=== PATIENT | female | born 1955 | race Caucasian/White ===

== ENCOUNTER 2017-10-16 15:40 | Observation (INO) | payer BC, OTHER ==
[~2017-10-16] VITALS: Ht 157.5 cm; Wt 64.6 kg
[~2017-10-16 15:40] MED LIST: Citalopram HBr20 MG PO; FOLI1 PO; FURO20 PO; Hair, Skin & N1 EACH PO; IBUPROFEN200 MG PO; K-Dur20 MEQ PO; KLOR CON PO; LACT10SY PO; LOSARTAN POTASS50 MG PO; MAGOXI400 PO; MULVITMIND PO; Multivitamins1 EAC4 PO; NEBI5 PO; ONDA4ODT PO; SPIR25 PO; SPIR50 PO; Super B Comple1 EAC2 PO; Super B-50 Com1 EAC1 PO; THIA100 PO
[2017-10-16 16:33] LABS: BASOPHILS ABSOLUTE AUTO 0.04 K/mm3 (0.00-0.23); BASOPHILS PERCENT AUTO 0 % (0-2); EOSINOPHILS ABSOLUTE AUTO 0.12 K/mm3 (0.00-0.68); EOSINOPHILS PERCENT AUTO 1 % (0-6); Hematocrit 28.5 % (33.0-51.0); Hemoglobin 9.6 g/dL (11.5-16.0); IMMATURE GRAN ABSOLUTE AUTO 0.06 K/mm3 (0.00-0.10); IMMATURE GRAN PERCENT AUTO 1 % (0-1); LYMPHOCYTES ABSOLUTE AUTO 2.02 K/mm3 (0.84-5.20); LYMPHOCYTES PERCENT AUTO 21 % (21-46); MONOCYTES ABSOLUTE AUTO 0.82 K/mm3 (0.16-1.47); MONOCYTES PERCENT AUTO 9 % (4-13); Mean Corpuscular HGB 36.8 pg (26.0-34.0); Mean Corpuscular HGB Conc 33.7 g/dL (31.5-36.5); NEUTROPHILS ABSOLUTE AUTO 6.47 K/mm3 (1.96-9.15); NEUTROPHILS PERCENT AUTO 68 % (41-73); Platelet Count 151 K/mm3 (150-400); RDW Coefficient Variation 14.6 % (11.7-14.2); Red Blood Cell Count 2.61 M/mm3 (3.80-5.20); White Blood Cell Count 9.53 K/mm3 (4.00-11.30)
[2017-10-16] MEDS ORDERED: POTCHL20ER PO (16:33)
[2017-10-16 16:38] LABS: Mean Corpuscular Volume 109 fL (80-100)
[2017-10-16 16:48] LABS: Alanine Aminotransfer (ALT/SGP 47 U/L (12-78); Albumin, Blood 2.3 g/dL (3.4-5.0); Albumin/Globulin Ratio 0.5 (0.8-1.8); Alk Phos 123 U/L (50-136); Anion Gap 13 mmol/L (6-16); Aspartate Aminotrans (AST/SGOT 90 U/L (12-37); Blood Urea Nitrogen 12 mg/dL (8-24); Bun/Creatinine Ratio 17.5 (12.0-20.0); CO2, Blood 15 mmol/L (21-32); Calcium, Blood 9.1 mg/dL (8.5-10.1); Chloride, Blood 109 mmol/L (98-108); Creatinine, Blood 0.68 mg/dL (0.40-1.00); Globulin, Blood 4.5 g/dL (2.2-4.0); Glomerular Filtration Rate >60 (60-); Glucose, Blood 103 mg/dL (70-99); Potassium, Blood 4.2 mmol/L (3.5-5.5); Sodium, Blood 137 mmol/L (136-145); Total Protein, Blood 6.8 g/dL (6.4-8.2); Troponin I <0.015 ng/mL (0.000-0.040)
[2017-10-16 17:42] LABS: International Normalized Ratio 1.23; Prothrombin Time Results 12.5 Sec (9.7-11.5)
[2017-10-17 04:51] LABS: BASOPHILS ABSOLUTE AUTO 0.04 K/mm3 (0.00-0.23); BASOPHILS PERCENT AUTO 1 % (0-2); EOSINOPHILS ABSOLUTE AUTO 0.15 K/mm3 (0.00-0.68); EOSINOPHILS PERCENT AUTO 2 % (0-6); Hematocrit 25.9 % (33.0-51.0); Hemoglobin 8.6 g/dL (11.5-16.0); IMMATURE GRAN ABSOLUTE AUTO 0.05 K/mm3 (0.00-0.10); IMMATURE GRAN PERCENT AUTO 1 % (0-1); LYMPHOCYTES ABSOLUTE AUTO 1.77 K/mm3 (0.84-5.20); LYMPHOCYTES PERCENT AUTO 22 % (21-46); MONOCYTES ABSOLUTE AUTO 0.73 K/mm3 (0.16-1.47); MONOCYTES PERCENT AUTO 9 % (4-13); Mean Corpuscular HGB 36.6 pg (26.0-34.0); Mean Corpuscular HGB Conc 33.2 g/dL (31.5-36.5); Mean Corpuscular Volume 110 fL (80-100); Mean Platelet Volume 9.1 fL (9.1-12.4); NEUTROPHILS ABSOLUTE AUTO 5.38 K/mm3 (1.96-9.15); NEUTROPHILS PERCENT AUTO 66 % (41-73); Platelet Count 127 K/mm3 (150-400); RDW Coefficient Variation 14.4 % (11.7-14.2); Red Blood Cell Count 2.35 M/mm3 (3.80-5.20); White Blood Cell Count 8.12 K/mm3 (4.00-11.30)
[2017-10-17 05:02] LABS: International Normalized Ratio 1.3; Prothrombin Time Results 13.2 Sec (9.7-11.5)
[2017-10-17 05:15] LABS: Anion Gap 10 mmol/L (6-16); Blood Urea Nitrogen 10 mg/dL (8-24); Bun/Creatinine Ratio 14.1 (12.0-20.0); CO2, Blood 18 mmol/L (21-32); Calcium, Blood 8.8 mg/dL (8.5-10.1); Chloride, Blood 110 mmol/L (98-108); Creatinine, Blood 0.71 mg/dL (0.40-1.00); Glomerular Filtration Rate >60 (60-); Glucose, Blood 88 mg/dL (70-99); Potassium, Blood 4.1 mmol/L (3.5-5.5); Sodium, Blood 138 mmol/L (136-145)
[2017-10-17 13:03] LABS: Automated BF WBC Count 0.154 K/mm3 (0-999); Body Fluid WBC Count 154 /mm3 (0-999)
[2017-10-17 13:27] LABS: RBC Count, Body Fluid 78 /mm3 (0-0)
[2017-10-17 13:53] LABS: Appearance, Body Fluid Clear (Clear); Color, Body Fluid Yellow (None-Yellow)
[2017-10-17 14:15] LABS: Total Cell Count, Body Fluid 100
[2017-10-18] MEDS ORDERED: SERT25 PO (13:29)
== END 2017-10-18 13:51 | disposition home or self-care (01) ==
LOC: ER 15:40 → MEDS 15:41 → ENPENDDIS 10-18 09:30 → MEDS 10-18 13:51
PROVIDERS: Emergency Medicine; Family Medicine
DX: J90 Pleural effusion, not elsewhere classified (principal); K72.00 Acute and subacute hepatic failure without coma; K70.31 Alcoholic cirrhosis of liver with ascites; D69.6 Thrombocytopenia, unspecified; F32.9 Major depressive disorder, single episode, unspecified; I10 Essential (primary) hypertension; F10.10 Alcohol abuse, uncomplicated; D63.8 Anemia in other chronic diseases classified elsewhere; E87.6 Hypokalemia; Z88.2 Allergy status to sulfonamides; Z79.899 Other long term (current) drug therapy
CPT/HCPCS: 32555; 36415; 71045; 71046; 80048; 80053; 83880; 84484; 85025; 85610; 85730; 89051; 93005; 93010; 96374; 99285; G0378; J3010

== ENCOUNTER 2017-10-19 15:09 | Day surgery (SDC) | payer BC, OTHER ==
[~2017-10-19 15:09] MED LIST changes: +POTCHL20ER PO; +SERT25 PO
== END 2017-10-19 22:47 ==
LOC: US 15:09
PROC: 0W993ZZ Drainage of Right Pleural Cavity, Percutaneous Approach (ICD-10-PCS; principal; 2017-10-19)
DX: J90 Pleural effusion, not elsewhere classified (principal)
CPT/HCPCS: 32555; 71045

== ENCOUNTER 2017-11-08 14:52 | Day surgery (SDC) | payer BC, OTHER | END 2017-11-08 23:13 | disposition home or self-care (01) | LOC: US 14:52 | DX: K70.31 Alcoholic cirrhosis of liver with ascites (principal) | CPT/HCPCS: 76705 ==

== ENCOUNTER 2017-12-06 13:22 | Inpatient (IN) | payer BC, OTHER ==
[~2017-12-06] VITALS: Ht 157.5 cm; Wt 52.2 kg
[2017-12-06 14:41] LABS: BASOPHILS ABSOLUTE AUTO 0.03 K/mm3 (0.00-0.23); BASOPHILS PERCENT AUTO 1 % (0-2); EOSINOPHILS ABSOLUTE AUTO 0.14 K/mm3 (0.00-0.68); EOSINOPHILS PERCENT AUTO 3 % (0-6); Hematocrit 30.4 % (33.0-51.0); Hemoglobin 10.6 g/dL (11.5-16.0); IMMATURE GRAN ABSOLUTE AUTO 0.01 K/mm3 (0.00-0.10); IMMATURE GRAN PERCENT AUTO 0 % (0-1); LYMPHOCYTES ABSOLUTE AUTO 1.71 K/mm3 (0.84-5.20); LYMPHOCYTES PERCENT AUTO 33 % (21-46); MONOCYTES ABSOLUTE AUTO 0.52 K/mm3 (0.16-1.47); MONOCYTES PERCENT AUTO 10 % (4-13); Mean Corpuscular HGB 31.6 pg (26.0-34.0); Mean Corpuscular HGB Conc 34.9 g/dL (31.5-36.5); Mean Corpuscular Volume 91 fL (80-100); Mean Platelet Volume 11.9 fL (9.1-12.4); NEUTROPHILS ABSOLUTE AUTO 2.75 K/mm3 (1.96-9.15); NEUTROPHILS PERCENT AUTO 53 % (41-73); Platelet Count 166 K/mm3 (150-400); RDW Standard Deviation 56.1 fL (35.1-46.3); Red Blood Cell Count 3.35 M/mm3 (3.80-5.20); White Blood Cell Count 5.16 K/mm3 (4.00-11.30)
[2017-12-06 15:00] LABS: Source, Urine Clean Catch
[2017-12-06 15:03] LABS: Alanine Aminotransfer (ALT/SGP 37 U/L (12-78); Albumin, Blood 2.5 g/dL (3.4-5.0); Albumin/Globulin Ratio 0.7 (0.8-1.8); Alk Phos 74 U/L (50-136); Anion Gap 11 mmol/L (6-16); Aspartate Aminotrans (AST/SGOT 36 U/L (12-37); Bilirubin, Total 3.1 mg/dL (0.1-1.0); Blood Urea Nitrogen 22 mg/dL (8-24); Bun/Creatinine Ratio 26.9 (12.0-20.0); CO2, Blood 17 mmol/L (21-32); Calcium, Blood 8.6 mg/dL (8.5-10.1); Chloride, Blood 113 mmol/L (98-108); Creatinine, Blood 0.82 mg/dL (0.40-1.00); Ethanol (Alcohol), Blood, Med <3 mg/dL; Globulin, Blood 3.7 g/dL (2.2-4.0); Glomerular Filtration Rate >60 (60-); Glucose, Blood 118 mg/dL (70-99); Magnesium, Blood 1.7 mg/dL (1.6-2.4); Potassium, Blood 3.2 mmol/L (3.5-5.5); Sodium, Blood 141 mmol/L (136-145); Total Protein, Blood 6.2 g/dL (6.4-8.2)
[2017-12-06 15:06] LABS: Blood, Urine Neg (Neg); Glucose Qualitative, Urine Neg (Neg); Ketones, Urine 1+ (Neg); Leukocyte Esterase, Urine 1+ (Neg); Nitrite, Urine Neg (Neg); Protein, Urine 1+ (Neg); Specific Gravity, Urine 1.015 (1.003-1.022); Urobilinogen, Urine 3+ (Normal)
[2017-12-06 15:12] LABS: Appearance, Urine Clear (Clear); Bilirubin, Urine 2+ (Neg); Color, Urine Yellow (P-Yellow)
[2017-12-06 15:14] LABS: Bacteria Few /hpf; Red Blood Cells, Urine 0-2 /hpf (0-2); Squamous Epithelial Cells Few /hpf (Few)
[2017-12-06 15:18] LABS: U Amphetamine Screen Not Detected; U Barbituate Screen Not Detected; U Benzodiazapine Screen DETECTED; U Buprenorphine Screen Not Detected; U Cannabinoids Screen Not Detected; U Cocaine Screen Not Detected; U Methadone Screen Not Detected; U Methamphetamine Screen Not Detected; U Opiates Screen Not Detected; U Oxycodone Screen Not Detected; U Phencyclidine Screen Not Detected; U Propoxyphene Screen Not Detected
[2017-12-06] MEDS ORDERED: RIFA550T2 PO (16:53)
[2017-12-06] MEDS ORDERED: FURO40 PO (16:54)
[2017-12-07 05:19] LABS: Anion Gap 12 mmol/L (6-16); Blood Urea Nitrogen 20 mg/dL (8-24); Bun/Creatinine Ratio 24.9 (12.0-20.0); CO2, Blood 19 mmol/L (21-32); Calcium, Blood 8.4 mg/dL (8.5-10.1); Chloride, Blood 115 mmol/L (98-108); Glomerular Filtration Rate >60 (60-); Glucose, Blood 86 mg/dL (70-99); Magnesium, Blood 1.8 mg/dL (1.6-2.4); Potassium, Blood 3.1 mmol/L (3.5-5.5); Sodium, Blood 146 mmol/L (136-145)
[2017-12-08 05:39] LABS: Anion Gap 10 mmol/L (6-16); Blood Urea Nitrogen 15 mg/dL (8-24); Bun/Creatinine Ratio 19.3 (12.0-20.0); CO2, Blood 18 mmol/L (21-32); Calcium, Blood 8.2 mg/dL (8.5-10.1); Chloride, Blood 115 mmol/L (98-108); Creatinine, Blood 0.78 mg/dL (0.40-1.00); Glomerular Filtration Rate >60 (60-); Glucose, Blood 81 mg/dL (70-99); Potassium, Blood 3.1 mmol/L (3.5-5.5); Sodium, Blood 143 mmol/L (136-145)
[2017-12-08] MEDS ORDERED: PANT40 PO (10:42)
== END 2017-12-08 11:21 | disposition home or self-care (01) | DRG 442 ==
LOC: ER 13:22 → MEDS 15:20 → ENPENDDIS 12-08 08:48 → MEDS 12-08 11:21
PROVIDERS: Emergency Medicine; Hospitalist
DX: K72.90 Hepatic failure, unspecified without coma (principal); J90 Pleural effusion, not elsewhere classified; K70.31 Alcoholic cirrhosis of liver with ascites; E87.6 Hypokalemia; D63.8 Anemia in other chronic diseases classified elsewhere; I10 Essential (primary) hypertension; F32.9 Major depressive disorder, single episode, unspecified
CPT/HCPCS: 36415; 36416; 71046; 80048; 80053; 81001; 82140; 83735; 85025; 87493; 93005; 93010; 99285-25; G0480; P9612

== ENCOUNTER → 2018-05-09 | Outpatient (CLI) | payer MEDICARE, BC, OTHER ==
[~2018-05-09] MED LIST changes: +FURO40 PO; +PANT40 PO; +RIFA550T2 PO
[2018-05-09 19:07] LABS: Bun/Creatinine Ratio 22.1 (12.0-20.0); Calcium, Blood 8.9 mg/dL (8.5-10.1); Potassium, Blood 3.4 mmol/L (3.5-5.5)
== END | disposition home or self-care (01) ==
LOC: LAB 17:54 → LAB SHORT 17:54
PROVIDERS: Hospitalist
DX: E87.6 Hypokalemia (principal)
CPT/HCPCS: 80048

== ENCOUNTER 2019-03-12 12:13 | Day surgery (SDC) | payer MEDICARE, BC, OTHER ==
[~2019-03-12] VITALS: Ht 157.5 cm; Wt 59.7 kg
[~2019-03-12 12:13] MED LIST changes: +Roxicodone5 MG PO; +VITAMIN B125000 MCG
== END 2019-03-12 14:17 | disposition home or self-care (01) ==
LOC: ORSCSDS 12:13
PROVIDERS: Internal Medicine Gastroenterology
PROC: 0DJ08ZZ Inspection of Upper Intestinal Tract, Via Natural or Artificial Opening Endoscopic (ICD-10-PCS; principal; 2019-03-12 13:15)
DX: K74.60 Unspecified cirrhosis of liver (principal); I85.00 Esophageal varices without bleeding; Z98.84 Bariatric surgery status; I10 Essential (primary) hypertension; F32.9 Major depressive disorder, single episode, unspecified; Z79.899 Other long term (current) drug therapy
CPT/HCPCS: J2250; J2704

== ENCOUNTER → 2019-03-20 | Outpatient (CLI) | payer MEDICARE, BC, OTHER ==
[2019-03-20 20:09] LABS: BASOPHILS ABSOLUTE AUTO 0.04 K/mm3 (0.00-0.23); BASOPHILS PERCENT AUTO 1 % (0-2); EOSINOPHILS PERCENT AUTO 3 % (0-6); Hematocrit 37.5 % (33.0-51.0); Hemoglobin 12.6 g/dL (11.5-16.0); IMMATURE GRAN PERCENT AUTO 0 % (0-1); LYMPHOCYTES ABSOLUTE AUTO 0.77 K/mm3 (0.84-5.20); LYMPHOCYTES PERCENT AUTO 23 % (21-46); MONOCYTES ABSOLUTE AUTO 0.44 K/mm3 (0.16-1.47); MONOCYTES PERCENT AUTO 13 % (4-13); Mean Corpuscular HGB 34.5 pg (26.0-34.0); Mean Corpuscular HGB Conc 33.6 g/dL (31.5-36.5); Mean Corpuscular Volume 103 fL (80-100); Mean Platelet Volume 11.9 fL (9.1-12.4); NEUTROPHILS ABSOLUTE AUTO 2.06 K/mm3 (1.96-9.15); NEUTROPHILS PERCENT AUTO 60 % (41-73); RDW Coefficient Variation 14.2 % (11.7-14.2); RDW Standard Deviation 54.4 fL (35.1-46.3); Red Blood Cell Count 3.65 M/mm3 (3.80-5.20); White Blood Cell Count 3.41 K/mm3 (4.00-11.30)
[2019-03-20 20:18] LABS: Platelet Count 34 K/mm3 (150-400)
[2019-03-20 20:34] LABS: Alanine Aminotransfer (ALT/SGP 61 U/L (12-78); Albumin, Blood 3.3 g/dL (3.4-5.0); Albumin/Globulin Ratio 0.9 (0.8-1.8); Alk Phos 151 U/L (50-136); Anion Gap 7 mmol/L (6-16); Aspartate Aminotrans (AST/SGOT 96 U/L (12-37); Bilirubin, Total 2.6 mg/dL (0.1-1.0); Blood Urea Nitrogen 8 mg/dL (8-24); Bun/Creatinine Ratio 12.5 (12.0-20.0); CO2, Blood 26 mmol/L (21-32); Calcium, Blood 8.6 mg/dL (8.5-10.1); Chloride, Blood 108 mmol/L (98-108); Creatinine, Blood 0.64 mg/dL (0.40-1.00); Globulin, Blood 3.6 g/dL (2.2-4.0); Glomerular Filtration Rate >60 (60-); Glucose, Blood 104 mg/dL (70-99); Potassium, Blood 3.9 mmol/L (3.5-5.5); Sodium, Blood 141 mmol/L (136-145); Total Protein, Blood 6.9 g/dL (6.4-8.2)
== END | disposition home or self-care (01) ==
LOC: LAB SHORT 17:39 → LAB 17:39
PROVIDERS: Hospitalist
DX: K70.9 Alcoholic liver disease, unspecified (principal); I10 Essential (primary) hypertension
CPT/HCPCS: 80053; 85025

== ENCOUNTER → 2019-05-22 | Outpatient (CLI) | payer MEDICARE, BC, OTHER ==
[2019-05-22 16:34] LABS: Percent Saturation 106.2 % (15.0-50.0)
[2019-05-22 16:37] LABS: Alpha Feto Protein, Tumor Mkr 9.6 ng/mL (0.0-8.0)
== END | disposition home or self-care (01) ==
LOC: LAB 10:50 → LAB SHORT 10:50
PROVIDERS: Internal Medicine Hematology & Oncology
DX: E53.8 Deficiency of other specified B group vitamins (principal); K70.31 Alcoholic cirrhosis of liver with ascites; D69.6 Thrombocytopenia, unspecified
CPT/HCPCS: 82105; 82607; 82728; 82746; 83540; 83550

== ENCOUNTER 2019-05-27 13:36 | Day surgery (SDC) | payer MEDICARE, BC, OTHER ==
[~2019-05-27] VITALS: Ht 157.5 cm; Wt 64.9 kg
[2019-05-27 14:25] LABS: Platelet Count 74 K/mm3 (150-400)
--- NOTE | 2019-05-27 15:57 | NUR ---
05/27/19 1557 Perta Tejada TRANEXAMIC ACID STARTED AT 1520 VIA PUMP. IV STARTED BY DR. MOREIRA.
--- NOTE | 2019-05-27 17:12 | NUR ---
05/27/19 1712 Nicole Marroquin [id number] DELAYED ENTRY V/O FROM DR RUCKER TO VOID REPEAT DOSE OF TRANEXAMIC ACID. PT INSTRUCTED TO TAKE PO DOSE OF POTASSIUM CHLORIDE AT HOME PRESCRIBED.
--- NOTE | 2019-05-27 17:19 | NUR ---
05/27/19 1719 Nicole Marroquin VSS, PT TOLERATING PO FLUIDS WELL IN SDU. AT CHAIRSIDE FOR DC INSTRUCTIONS. ICE AND ELEVATION IMPLEMENTED. PT AND VERBALIZED AWARENESS TO TAKE 1 PO DOSE OF POTASSIUM CHLORIDE AT HOME ORDERED BY DR RUCKER.
== END 2019-05-27 17:18 | disposition home or self-care (01) ==
LOC: ORSCSDS 13:36
PROVIDERS: Podiatrist Foot & Ankle Surgery
PROC: 0QSN04Z Reposition Right Metatarsal with Internal Fixation Device, Open Approach (ICD-10-PCS; principal; 2019-05-27 14:00)
PROC: 0SGM04Z Fusion of Right Metatarsal-Phalangeal Joint with Internal Fixation Device, Open Approach (ICD-10-PCS; principal; 2019-05-27 14:00)
DX: M20.11 Hallux valgus (acquired), right foot (principal); M20.41 Other hammer toe(s) (acquired), right foot; M79.671 Pain in right foot; I10 Essential (primary) hypertension; K74.60 Unspecified cirrhosis of liver; Z79.899 Other long term (current) drug therapy
CPT/HCPCS: 84132; 85049; C1713; C1769; J0171; J0690; J1100; J2250; J2405; J2704; J3010; J7120

== ENCOUNTER 2019-07-22 21:54 | Inpatient (IN) | payer MEDICARE, BC, OTHER ==
[~2019-07-22] VITALS: Ht 157.5 cm; Wt 62.5 kg
[2019-07-22 23:11] LABS: BASOPHILS ABSOLUTE AUTO 0.07 K/mm3 (0.00-0.23); BASOPHILS PERCENT AUTO 0 % (0-2); EOSINOPHILS ABSOLUTE AUTO 0.06 K/mm3 (0.00-0.68); EOSINOPHILS PERCENT AUTO 0 % (0-6); Hemoglobin 11.5 g/dL (11.5-16.0); IMMATURE GRAN ABSOLUTE AUTO 0.43 K/mm3 (0.00-0.10); IMMATURE GRAN PERCENT AUTO 2 % (0-1); LYMPHOCYTES ABSOLUTE AUTO 1.55 K/mm3 (0.84-5.20); LYMPHOCYTES PERCENT AUTO 8 % (21-46); MONOCYTES ABSOLUTE AUTO 1.51 K/mm3 (0.16-1.47); MONOCYTES PERCENT AUTO 8 % (4-13); Mean Corpuscular HGB 36.9 pg (26.0-34.0); Mean Corpuscular HGB Conc 33.8 g/dL (31.5-36.5); Mean Corpuscular Volume 109 fL (80-100); Mean Platelet Volume 9.9 fL (9.1-12.4); NEUTROPHILS ABSOLUTE AUTO 15.45 K/mm3 (1.96-9.15); NEUTROPHILS PERCENT AUTO 81 % (41-73); Platelet Count 131 K/mm3 (150-400); RDW Coefficient Variation 14.6 % (11.7-14.2); RDW Standard Deviation 59.2 fL (35.1-46.3); Red Blood Cell Count 3.12 M/mm3 (3.80-5.20); White Blood Cell Count 19.07 K/mm3 (4.00-11.30)
[2019-07-22 23:25] LABS: Albumin, Blood 1.9 g/dL (3.4-5.0); Albumin/Globulin Ratio 0.4 (0.8-1.8); Bilirubin, Total 14.4 mg/dL (0.1-1.0); Bun/Creatinine Ratio 23.3 (12.0-20.0); Calcium, Blood 8.3 mg/dL (8.5-10.1); Creatinine, Blood 1.5 mg/dL (0.40-1.00); Globulin, Blood 4.4 g/dL (2.2-4.0); Potassium, Blood 4.2 mmol/L (3.5-5.5); Total Protein, Blood 6.3 g/dL (6.4-8.2)
[2019-07-22 23:38] LABS: International Normalized Ratio 1.54; Prothrombin Time Results 16.1 Sec (9.7-11.5)
[2019-07-23 00:45] LABS: Source, Urine Clean Catch
[2019-07-23 00:47] LABS: Appearance, Urine Clear (Clear); Bilirubin, Urine 3+ (Neg); Blood, Urine Neg (Neg); Color, Urine Amber (P-Yellow); Glucose Qualitative, Urine Neg (Neg); Ketones, Urine 1+ (Neg); Leukocyte Esterase, Urine 1+ (Neg); Nitrite, Urine Neg (Neg); Protein, Urine 1+ (Neg); Specific Gravity, Urine 1.015 (1.003-1.022); Urobilinogen, Urine 4+ (Normal)
[2019-07-23 00:53] LABS: Amorphous Light (0-Heavy); Bacteria Mod /hpf; Granular Casts 0-2 /lpf (0); Hyaline Casts 50-100 /lpf (0-2); Mucus Light (0-Heavy); Red Blood Cells, Urine 0-2 /hpf (0-2); Squamous Epithelial Cells Few /hpf (Few)
--- NOTE | 2019-07-23 01:36 | NUR ---
0136-PATIENT BEING ADMITTED TO THE FLOOR FOR ACUTE HEPATIC ENCEPHALOPATHY. SHE ARRIVED VIA GURNEY, TRANSFERRED TO BED USING SLIDER SHEET. SHE IS ALERT BUT VERY WITHDRAWN, KEEPING HER EYES CLOSED. SHE IS ANSWERING QUESTIONS BUT NOT SURE HOW ACCURATE THEY ARE OR IF SHE WILL REMEMBER THEM. SHE WAS UNABLE TO STATE ORIENTATION OTHER THEN SELF. SHE APPEARS VERY TIRED AND FATIQUED. LUNG SOUNDS ARE CLEAR THROUGHOUT. HR REGULAR S1 S2 SOUNDS. SKIN IS VERY JAUDICE, INCLUDING EYES. ABDOMINAL GIRTH IS VERY ROUND AND FIRM, TENDER TO PALPITATION. STATES BM TODAY, NORMAL. DENIES SOB, CHEST PAIN, PALPITATIONS. ASCENCIO PATENT AND DRAINING. APPETITE DECREASED, STATES HAS NOT BEEN ABLE TO EAT. SKIN INTACT, NO SKIN BREAKDOWN NOTED. CALL LIGHT GIVEN, ADMISSION COMPLETED. WILL CONTINUE TO MONITOR.
[2019-07-23 04:34] LABS: BASOPHILS ABSOLUTE AUTO 0.03 K/mm3 (0.00-0.23); BASOPHILS PERCENT AUTO 0 % (0-2); EOSINOPHILS ABSOLUTE AUTO 0.09 K/mm3 (0.00-0.68); EOSINOPHILS PERCENT AUTO 1 % (0-6); Hemoglobin 10.2 g/dL (11.5-16.0); IMMATURE GRAN ABSOLUTE AUTO 0.34 K/mm3 (0.00-0.10); IMMATURE GRAN PERCENT AUTO 2 % (0-1); LYMPHOCYTES ABSOLUTE AUTO 2.08 K/mm3 (0.84-5.20); LYMPHOCYTES PERCENT AUTO 11 % (21-46); MONOCYTES ABSOLUTE AUTO 1.46 K/mm3 (0.16-1.47); MONOCYTES PERCENT AUTO 8 % (4-13); Mean Corpuscular HGB 36.4 pg (26.0-34.0); Mean Corpuscular HGB Conc 32.9 g/dL (31.5-36.5); Mean Corpuscular Volume 111 fL (80-100); Mean Platelet Volume 9.8 fL (9.1-12.4); NEUTROPHILS ABSOLUTE AUTO 14.68 K/mm3 (1.96-9.15); NEUTROPHILS PERCENT AUTO 79 % (41-73); Platelet Count 125 K/mm3 (150-400); RDW Coefficient Variation 14.6 % (11.7-14.2); RDW Standard Deviation 59.7 fL (35.1-46.3); White Blood Cell Count 18.68 K/mm3 (4.00-11.30)
[2019-07-23 04:52] LABS: Albumin, Blood 1.8 g/dL (3.4-5.0); Albumin/Globulin Ratio 0.4 (0.8-1.8); Bun/Creatinine Ratio 22.6 (12.0-20.0); Calcium, Blood 8.1 mg/dL (8.5-10.1); Creatinine, Blood 1.59 mg/dL (0.40-1.00); Potassium, Blood 3.6 mmol/L (3.5-5.5); Total Protein, Blood 5.8 g/dL (6.4-8.2)
--- NOTE | 2019-07-23 05:53 | NUR ---
SHIFT SUMMARY: ALFREDO WAS ADMITTED TO THE FLOOR LAST NIGHT FOR HEPATIC ENCEPHALOPATHY. AOX1, VERY WITHDRAWN AND FATIQUED. UNABLE TO HOLD EYES OPEN. ABLE TO FOLLOW DIRECTIONS AND ANSWER QUESTIONS, BUT FORGETFUL. SHE IS ILL APPEARING, JAUDICE WITH DISTENDED ABDOMIN. ABDOMIN ROUND AND FIRM, TENDER, BM NOTED YESTERDAY PER PATIENT, FORMED. DECREASE IN APPETITE, HAS NOT EATEN IN SEVERAL DAYS. NO NAUSEA. VERY WEAK. 3+ PITTING EDEMA TO BLE. PALE AND COOL. LUNG SOUNDS CLEAR, NO SOB AT THIS TIME. VS WNL, AFEBRILE, SHE IS SLIGHTLY TACHYCARDIC. ASCENCIO CATHETER PLACED IN ER, FOR RETENSION. NPO. LACTIC ACID AT 3.2, WBC 18.68, GFR 34, AMMONIA 15.3 AND BILIRUBIN 13. LACTATED RINGERS RUNNING AT 100ML/HR. UNABLE TO CARE FOR HER AT HOME, WILL NEED POSSIBLE PLACEMENT AND HOSPICE SERVICE. CIWA ALL WERE 2 THIS SHIFT. CALL LIGHT REMAINED IN REACH, BED ALARM ON. WILL REPORT TO DAY SHIFT.
[2019-07-23 15:40] LABS: Automated BF WBC Count 0.754 K/mm3 (0-999); Body Fluid WBC Count 754 /mm3 (0-999)
[2019-07-23 16:00] LABS: Appearance, Body Fluid Hazy (Clear); Total Cell Count, Body Fluid 100
[2019-07-23 16:01] LABS: Albumin, Body Fluid 0.2 g/dL
[2019-07-23 16:02] LABS: Glucose, Body Fluid 112 mg/dL; Lactate Dehydrogenase, Body Fl 32 U/L; Protein, Body Fluid 0.7 g/dL; RBC Count, Body Fluid 22 /mm3 (0-0)
--- NOTE | 2019-07-23 19:08 | NUR ---
SHIFT SUMMARY PATIENT VERY SOMNOLENT. PATIENT SHOWS NO NONVERBAL SIGNS OF DISTRESS. PATIENT CAN SOMETIMES ANSWER SIMPLE QUESTIONS WITH ONE WORD ANSWERS. PATIENT HAD PARACENTISIS TODAY. PATIENT REPOSITIONED Q2. PALLIATIVE CONSULTED. CALL LIGHT IN REACH.
--- NOTE | 2019-07-23 20:11 | NUR ---
Pt somulent unable to swallow. tolerated paracentesis. Notified phsyician of unable to take lactulose changed meds to rctal and IV. Called he states he can no longer care for her. Was unable to discuss care with him strong suspicion he was intoxicated. Will get SS consult and look at how she responds to treament possible hospice plan.
--- NOTE | 2019-07-23 20:50 | NUR ---
ASSUMED CARE OF THE PATIENT. ALFREDO IS LETHARGIC DOES OPEN YES TO VERBAL AND PHYSICAL STIMULI. DOES NOT KEEP HER EYES OPEN LONG. RESPONDS WITH YES OR NO BUT DOES NOT UNDERSTAND THE QUESTIONS. SHE IS NOT MOVING AROUND IN BED. JUST LAYS STILL. EDEMA STILL NOTED TO BLE, ELEVATED ON PILLOWS. WHEN REPOSITIONING HER SHE WILL MOAN A LITTLE. ABDOMIN A LITTLE SOFTER TONIGHT BUT STILL DISTENDED. IV BANNANA BAG INFUSING. CATHETER PATENT AND DRAINING. CALL LIGHT IN REACH.
--- NOTE | 2019-07-23 22:43 | NUR ---
CALLED ASKING ABOUT HIS AND HOW SHE IS DOING. INFORMED HER OF HER STATUS. DISCUSSED PLAN AND INTERVENTIONS WITH HIM. ALSO DISCUSSED COMFORT CARE AND WHAT THAT INTAILS. "I DON'T WANT HER TO GO THROUGH ALL THAT, JUST LET HER GO PEACEFULLY AND NOT IN PAIN." VERIFIED THAT HE WAS ASKING FOR COMFORT CARE, HE SAID YES. INFORMED HIM WILL LET THE DOCTOR KNOW THAT AND PALLITIVE CARE OR THE DOCTOR MAY CALL HIM BACK TO VERIFY POSSIBLY TONIGHT OR TOMORROW. HE SAID THAT WAS FINE WITH HIM. HE L[address]ES [address] AND IS NOT ABLE TO COME IN AND SIGN ANYTHING. HIS CONTACT INFORMATION IS IN [phone].
--- NOTE | 2019-07-24 00:53 | NUR ---
REPOSITIONED ALFREDO. SHE HAS SOFT ORANGE COLOR STOOL SMALL AMOUNT. CATH CARE, SKIN CARE, JUWAN CARE PERFORMED. REPOSITIONED ON SIDE. SHE DID SPEAK BUT DID NOT MAKE ANY SINCE. IV NOW INFUSING LACTATED RINGERS. BANANNA BAG FINISHED EARLIER.
--- NOTE | 2019-07-24 04:35 | NUR ---
SHIFT SUMMARY: ALFREDO HAS BEEN LETHARGIC MOST OF THE NIGHT. SHE ONLY OPENED HER EYES A FEW TIMES OR MADE NOISE WHEN MOVING HER. SHE DID SPEAK A FEW WORDS A COUPLE OF TIMES BUT WITH NO REFERENCE TO ANYTHING. SHE WAS REPOSITIONED Q 2 HRS. LACTOLOSE ENEMA WAS GIVEN, RESULTING IN SMALL SOFT ORANGEISH BROWN STOOL. LATER HAD A VERY SMALL SOFT STOOL. ABDOMIN REMAINS ROUND AND FIRM. CATHETER HAS REMAINED PATENT WITH ORANGE URINE AROUND 300CC. BANANNA BAG COMPLETED, IV ANTIBOTIC GIVEN, AND LR STILL INFUSING AT 100ML/HR. DID CALL LAST NIGHT REQUESTING SHE BE PUT ON COMFORT CARE, AND TO STOP CURRENT TREATMENTS. COMFORT CARE WAS EXPLAINED TO HIM AND HE STILL AGREED TO IT. INFORMED HIM THE DOCTOR OR PALLATIVE CARE WILL HAVE TO CALL HIM TO VERIFY. HER SKIN IS STILL JAUDICE. NO OTHER CHANGES TO NOTE WILL REPORT TO DAY SHIFT.
[2019-07-24 04:46] LABS: Albumin, Blood 1.9 g/dL (3.4-5.0); Albumin/Globulin Ratio 0.7 (0.8-1.8); Bilirubin, Total 10.4 mg/dL (0.1-1.0); Bun/Creatinine Ratio 25.2 (12.0-20.0); Calcium, Blood 7.7 mg/dL (8.5-10.1); Creatinine, Blood 1.39 mg/dL (0.40-1.00); Globulin, Blood 2.9 g/dL (2.2-4.0); Magnesium, Blood 1.8 mg/dL (1.6-2.4); Potassium, Blood 3.4 mmol/L (3.5-5.5); Total Protein, Blood 4.8 g/dL (6.4-8.2)
--- NOTE | 2019-07-24 07:27 | NUR ---
ASSUMED CARE: PT RESTING QUIETLY AT THIS TIME. NO ACUTE NEEDS OR CONCERNS NOTED.
--- NOTE | 2019-07-24 12:55 | NUR ---
DISCUSSED PT'S CASE WITH DR WALKER. DR AWARE OF SOCIAL SITUATION AND CONFIRMED WHAT THIS RN HEARD IN REPORT ABOUT PT COMING INTO HOSPITAL WITH FECES IN PLACE AND CALLING AND SPEAKING TO STAFF WHILE INEBRIATED. ALSO WAS TOLD IN REPORT THAT REQUESTED COMFORT CARE. DR WALKER REQUESTED WE SPEAK WITH PALLIATIVE CARE REGARDING FURTHER PLANNING WITH THIS. SPOKE WITH CURTIS MONTILLA WHO STATED SHE WILL REVIEW PT'S CHART. PT RESTING QUIETLY AT THIS TIME. NO FURTHER NEEDS NOTED
--- NOTE | 2019-07-24 15:37 | NUR ---
PALLIATIVE CARE SPOKE WITH DC PLANNING REGARDING DC PLAN. FLOOR SERVICE WORKER SPRING, ARIE TO F/U WITH PT'S . PALLIATIVE CARE TO SPEAK WITH PT TO FEEL OUT WISHES AND DECISION MAKING ABILITY
--- NOTE | 2019-07-24 16:30 | NUR ---
Pal Care Visit Pt is awake, in bed with hob sl elevated. I introduced myself and assessed orientation. Pt is able to tell me she lives in [place] and that she is in [facility]. She is sometimes slow to respond but appropriate. She states she is not hurting. She does not display any nonverbal indicators of pain or dyspnea. She appears worried but not aggitated. She wants to go home. She would like a drink of water and is uncertain why she is NPO. I explained to her that she had not been awake enough to eat/drink or swallow safely previously. Checked with RN on if pt could have anything by mouth and bedside swallow eval done with water. Pt able to follow commands and swallow both from spooned water and sipping from a cup. RN had to hold the cup for her and pt could sip small amounts at a time without indicators that she was aspirating. See RN notes for full assessment/bedside swallow eval. I asked pt several questions re: her wishes for comfort care, hospice, returning to the hospital in different ways. Pt indicates that she would not want to return to the hospital for an illness that could not be cured. She verbalizes understanding that her liver failure is end stage. She says she and her have talked about this. She does want hospice support in her own home. She has not considered going elsewhere. When asked if she had children locally, she said yes, rolled her eyes and said, "they live with us". was in for a visit with her and we discussed equipment that might be helpful at home. Pt could benefit from a hospital bed, BS, overbed table at home. When I went to report to Silvia JOHN, she was on the phone with the . I also spoke with the about hospice services, equipment and possible d/c as soon as tomorrow. Pt's is requesting Hospice. He did not request placement outside of the home today. We discussed equipment and the three hospice agencies that serve our area. He does not have a preference but wants whichever one can be available the ealiest. All of above reviewed with DR DORA, RN, Package Dye Stand Loader. Pt was happy to be able to have something to eat and requested jello. Hospice order entered by Dr. JOHN to f/u with and hospice agency for coordination of d/c. Some concerns raised for pt's safety being cared for at home. At this time, It is patients only acceptable option and there will be much more assessment and outside supervision of care in the home with hospice involved.
--- NOTE | 2019-07-24 18:03 | NUR ---
Initial spiritual care note: Mrs. Watts was open and homest about her fears and concerns with nearing end-of-life. She tells me her is angry and fearful. But her son and DIL are supportive. Her two grand-daughters are a source of junior. She blames herself for her illness. 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 We spoke at length about her family, her remorse, and regrets. It seemed to provide comfort to be heard and affirmed. She responded well to gentle grief counsellor and became tearful during prayer. She will benefit from continued storage specialist grief counsellor once on hospice. She hopes to be home tomorrow. I will remain available.
--- NOTE | 2019-07-24 18:04 | NUR ---
SHIFT SUMMARY: PALLIATIVE CARE AND DC PLANNING SPOKE WITH PT'S AND PT ABOUT WISHES FOR DC PLAN. MESSAGE WAS RELAYED TO DR WALKER, PLAN IS NOW FOR HOME WITH HOSPICE TOMORROW. PT SAT UP TO EAT DINNER AFTER BEDSIDE SWALLOW EVAL COMPLETED. NO FURTHER NEEDS OR CONCERNS AT THIS TIME.
--- NOTE | 2019-07-24 19:32 | NUR ---
ALFREDO IS MORE AWAKE THEN SHE HAS BEEN THE LAST FEW DAYS. SHE IS ASKING TO GO HOME. SHE IS ABLE TO STATE BIRTHDAY, WHERE SHE IS AT, FOLLOWS DIRECTION, AND UNDERSTANDS WHAT IS GOING ON. LUNG SOUNDS ARE STILL CLEAR, NO SOB. VS WNL. NO PAIN NOTED. ABDOMIN IS STILL ROUND BUT SOFTER. CATHETER IS PATENT AND DRAINING. CALL LIGHT IN REACH. BED ALARM IS ON. WILL CONTINUE TO MONITOR.
--- NOTE | 2019-07-25 04:38 | NUR ---
SHIFT SUMMARY; ALFREDO HAS IMPROVED THROUGHOUT THE NIGHT. SHE IS MORE ALERT AND TALKATIVE. KNOWS SHE IS IN THE HOSPITAL AND THAT SHE WANTS TO GO HOME. SHE CONTINUED TO STATE THIS THROUGHOUT THE NIGHT. MORE ACTIVE BUT STILL VERY WEAK. APPETITE IS IMPROVING, SHE IS DRINKING FLUIDS. WAS ABLE TO TAKE HER LACTOLOSE RESULTING IN A COUPLE LOOSE STOOLS. ABDOMIN STILL DISTENDED AND ROUND. EDEMA TO BLE +3, KEPT ELEVATED ON PILLOWS. Q2 POSITION CHANGES, IV FLUIDS CONTINUE TO INFUSE. VS HAVE BEEN WNL. PLAN IS TO GO HOME ON HOSPICE, WILL HAVE ASSISTANCE FROM NEIGHBORS AND FAMILY. CALL LIGHT IN REACH AND BED ALARM IS ON.
--- NOTE | 2019-07-25 12:57 | NUR ---
Pt resting in bed upon arrival. Pt reports 5/10 pain in her abdomen. Pt also reports dyspnea. Pt abdomen appears significantly distended. Plan is for Pt to discharge today with hospice. Pt agreeable for paracentesis if appropriate. Spoke with Dr Garcia and reported Pt's pain, dyspnea, and abdomen distention. Dr Garcia will place order for paracentesis. Spoke with senior materials planner Silvia, discussed case and plan for paracentesis. Silvia will make arrangments for transport to pick Pt up at a later time. Spoke with Bedside RN Rylie and discussed case. Palliative Care will remain available.
--- NOTE | 2019-07-25 17:41 | NUR ---
Spiritual care note: Donna appears weak. She awakens easily, but could not stay awake for conversation. Brought warm blanket at request. She appears comfortable and without distress.
--- NOTE | 2019-07-25 17:53 | NUR ---
Brief F/U visit this evening. Pt reports pain and dyspnea improvement after paracentesis. Transport has arrived to transport Pt home. Palliative Care will remain available.
--- NOTE | 2019-07-25 18:01 | NUR ---
PT DISCHARGED TO HOME WITH HOSPICE AT 1755. PT AOX3 WITH CONFUSION AND WAS UNABLE TO REVIEW MEDICATIONS WITH PT. TRIED TO CONTACT HOSPICE AND THEY WERE UNABLE TO FIND WHICH HOSPICE NURSE WOULD BE ADMITTING PT. THEY ARE TO CALL BACK FOR REPORT, GAVE THEM NAME AND NUMBER TO CALL. PACKET WAS GIVEN TO AMBULANCE DRIVERS AND PERSONAL BELONGINGS WERE SENT WITH PT.
== END 2019-07-25 17:48 | disposition hospice, home (50) | DRG 442 ==
LOC: ER 21:54 → MEDS 07-23 01:21
PROVIDERS: Emergency Medicine; Internal Medicine; ADMIT Family Medicine
PROC: 0W9G3ZZ Drainage of Peritoneal Cavity, Percutaneous Approach (ICD-10-PCS; principal; 2019-07-24)
DX: K72.00 Acute and subacute hepatic failure without coma (principal); N17.9 Acute kidney failure, unspecified; J90 Pleural effusion, not elsewhere classified; L03.115 Cellulitis of right lower limb; K70.31 Alcoholic cirrhosis of liver with ascites; D63.8 Anemia in other chronic diseases classified elsewhere; E87.6 Hypokalemia; Z66 Do not resuscitate; F10.20 Alcohol dependence, uncomplicated; B19.20 Unspecified viral hepatitis C without hepatic coma; Z51.5 Encounter for palliative care; I10 Essential (primary) hypertension; F32.9 Major depressive disorder, single episode, unspecified; Z98.84 Bariatric surgery status
CPT/HCPCS: 36415; 49083; 51702; 80053; 81001; 82042; 82140; 82945; 83605; 83615; 83735; 84157; 85025; 85610; 87040; 87070; 87086; 87205; 89051; 93005; 93010; 96374; 99285; J0696; J2405; J3411; J3475; J7042; J7120; P9046